=== PATIENT | female | born 1955 | race Caucasian/White ===

== ENCOUNTER 2019-09-20 11:51 | Outpatient (CLI) | payer OTHER, SELFPAY ==
--- NOTE | ~2019-09-20 | MMUS_ITS ---
EXAMINATION: MM screen RT diag LT w reed, US breast BI limited HISTORY: Six-month follow-up of multiple probably benign left breast masses TECHNIQUE: Digital MLO and CC right and digital ML, MLO and cc left 3-D tomosynthesis images were per formed and synthetic 2-D images were generated. CAD analysis was submitted and interpreted. High reso lution bilateral upper outer quadrant breast ultrasound was performed. COMPARISON: 02/19/2019 limited left breast ultrasound 02/19/2019 diagnostic left digital mammogram 07/07/2018 limited left breast ultrasound 07/09/2018 diagnostic left digital mammogram BREAST PARENCHYMAL COMPOSITION: There are scattered areas of fibroglandular density. FINDINGS: MAMMOGRAPHIC FINDINGS: There is a biopsy marker in the left breast; history of previous benign left b reast biopsy. Possible masses are suggested in the upper outer quadrant of each breast. There is suggestion of an area of architectural distortion with spiculation in the upper left breast (left MLO Tomosynthesis image 23/41). Three-D guided Tomosynthesis mammographic biopsy is recommended . Bilateral upper outer quadrant ultrasound examination was performed. ULTRASOUND: Right Breast: No significant abnormality in upper outer quadrant Left Breast: 2:00 4 cm from nipple: 3.5 x 4.7 mm irregular hypoechoic lesion with some posterior shadowing is note d. 2:00 3 cm from nipple: 3.2 x 3.9 x 4.0 mm hypoechoic mass 3:00 5 cm from nipple: 4.8 x 7.0 x 5.0 mm hypoechoic somewhat kidney-shaped lesion without shadowing or internal vascularity Ultrasound-guided aspiration or biopsy, if aspiration is unsuccessful, of these lesions is recommende d. IMPRESSION: 1. Focal architectural distortion/spiculation in the upper left breast; 3-D data Tomosynthesis mammog raphic biopsy is recommended 2. Several hypoechoic lesions of the left breast are noted at 2:00 4 cm nipple, 2:00 3 cm from nipple and 3:00 5 cm from nipple; cyst aspiration should be attempted, with ultrasound-guided biopsy is uns uccessful BI-RADS category 4, suspicious findings. Reviewed, dictated and finalized at location A. IMPRESSION: 1. Focal architectural distortion/spiculation in the upper left breast; 3-D murphy a Tomosynthesis mammographic biopsy is recommended 2. Several hypoechoic lesions of the left breast are noted at 2:00 4 cm nipple, 2:00 3 cm from nipple and 3:00 5 cm from nipple; cyst aspiration should be att empted, with ultrasound-guided biopsy is unsuccessful BI-RADS category 4, suspicious findings.
== END 2019-09-20 11:52 | disposition home or self-care (01) ==
PROVIDERS: PCP Family Medicine; Visit Provider Obstetrics & Gynecology
DX: Z12.31 Encounter for screening mammogram for malignant neoplasm of breast (principal); R92.8 Other abnormal and inconclusive findings on diagnostic imaging of breast
CPT/HCPCS: 76642; 77063; 77065; 77067